=== PATIENT | male | born 1945 | race Caucasian/White ===

== ENCOUNTER 2019-08-11 16:49 | Emergency (ER) | payer MEDICARE, OTHER, SELFPAY ==
--- NOTE | 2019-08-11 16:53 | ED.GENADULT ---
HPI - General Adult General Chief complaint: Upper Respiratory Infection Stated complaint: cough and congestion Time Seen by Provider: 08/11/19 17:08 Source: patient Mode of arrival: ambulatory Limitations: no limitations History of Present Illness HPI narrative: 74-year-old male patient presents to the [facility] with complaints of cold symptoms for the past 3 days. Patient denies any fevers that he is aware of but states he has felt feverish. Patient denies any ear pain but states he has had a little bit of a runny nose denies any sore throat. Patient states he has had a deep cough that he feels like it is going down to his chest. Patient denies any chest pain or shortness of breath at this time. Patient states he is a former smoker and quit about 15 years ago. Denies any lung diseases that he is aware of. Patient states that he did get a flu shot this year. Patient denies taking anything for symptoms since they started. Related Data Home Medications Medication Instructions Recorded Confirmed atorvastatin 20 mg PO DAILY 08/11/19 08/11/19 dutasteride 0.5 mg PO DAILY 08/11/19 08/11/19 isosorbide mononitrate 30 mg PO DAILY 08/11/19 08/11/19 quinapril 40 mg PO DAILY 08/11/19 08/11/19 Allergies Allergy/AdvReac Type Severity Reaction Status Date / Time codeine AdvReac Unknown HEADACHES Verified 08/11/19 17:08 Review of Systems Review of Systems: Narrative: CONSTITUTIONAL: Denies fever, chills, or sweats. EYES: Denies visual changes, redness, or discharge. ENT: Positive rhinorrhea, congestion, denies sore throat, or otalgia. CARDIOVASCULAR: Denies chest pain, palpitations, or edema. RESPIRATORY: Positive cough denies dyspnea. GASTROINTESTINAL: Denies abdominal pain, nausea, vomiting, or diarrhea. GENITOURINARY: Denies dysuria or hematuria. SKIN: Denies rash or itching. MUSCULOSKELETAL: Denies back pain, joint pain, or myalgia. NEUROLOGIC: Denies headache, numbness, or weakness. PSYCHIATRIC: Denies anxiety or depression. [facility] Past Medical History Medical History (Updated 08/11/19 @ 17:14 by SHIV Zhang) Coronary artery disease Enlarged prostate Hypercholesterolemia Hypertension Hypothyroidism Surgical History Surgical History (Updated 08/11/19 @ 17:07 by PARESH Zhang H/O cardiac catheterization 2 stents placed March 2012 History of cholecystectomy History of orthopedic surgery Right shoulder rotator cuff 2008 Comments At the time of my signature I agree with nursing past medical history, surgical, social, and family history. There is no relevant family history pertinent to the presenting complaint. Exam Narrative: Exam Narrative: GENERAL: Well-appearing, well-nourished, and in no acute distress. HEAD: Normocephalic, atraumatic. No tenderness noted to frontal or maxillary sinuses on palpation. EYES: PERRLA and EOMI. ENT: Nares with erythema and edema noted on the right side, no rhinorrhea or epistaxis. Mucous membranes moist. Posterior pharynx with no erythema, tonsillectomy, exudates or lesions present. Bilateral TMs are clear with no erythema or foreign bodies in the canal. NECK: Supple. No lymphadenopathy CHEST: Clear to auscultation. No respiratory distress. Patient able talk in clear complete sentences. No tripoding noted. HEART: Regular rate and rhythm. No murmur heard. Normal peripheral pulses. ABDOMEN: Soft, nontender, nondistended, normal active bowel sounds. EXTREMITIES: Normal range of motion. No edema. SKIN: Warm, dry, no rash. NEURO: No focal deficits. Alert and oriented x3. Course Vital Signs Vital signs: Vital Signs Temperature 36.7 C 08/11/19 16:58 Pulse Rate 79 08/11/19 16:58 Respiratory Rate 14 08/11/19 16:58 Blood Pressure 163/90 H 08/11/19 16:58 Pulse Oximetry 98 08/11/19 16:58 Temperature 36.7 C 08/11/19 16:58 Pulse Rate 79 08/11/19 16:58 Respiratory Rate 14 08/11/19 16:58 Blood Pressure 163/90 H 08/11/19 16:58 Puls
[2019-08-11 16:58] VITALS: BP 163/90; PULSE 79; RESP 14; TEMP 36.7; O2SAT 98
== END 2019-08-11 17:18 | disposition home or self-care (01) ==
PROVIDERS: Emergency Provider Nurse Practitioner Family
DX: J06.9 Acute upper respiratory infection, unspecified (principal); I25.10 Atherosclerotic heart disease of native coronary artery without angina pectoris; Z95.5 Presence of coronary angioplasty implant and graft; N40.0 Benign prostatic hyperplasia without lower urinary tract symptoms; E78.00 Pure hypercholesterolemia, unspecified; I10 Essential (primary) hypertension; E03.9 Hypothyroidism, unspecified
CPT/HCPCS: 99213; G0463

== ENCOUNTER 2022-06-19 11:25 | Emergency (ER) | payer OTHER, SELFPAY ==
--- NOTE | ~2022-06-19 | XR_ITS ---
XR foot RT min 3V 06/19/2022 12:27 Indication: Right great toe pain Procedure: 4 views right foot Comparison: No prior studies for comparison. Findings: There is mild osteoarthritis of the first MTP and IP joints. No erosive changes. No acute f racture. There are small degenerative calcaneal enthesophytes. Lisfranc joint intact. 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 Reviewed, dictated and finalized at location A. 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
[2022-06-19 12:09] VITALS: BP 157/97; PULSE 85; RESP 18; TEMP 35.9; O2SAT 98
--- NOTE | 2022-06-19 12:22 | PC.NURSE ---
Xray at bedside
--- NOTE | 2022-06-19 13:44 | ED.LOWEXIN ---
HPI - Extremity Injury (Lower) General Chief Complaint: Extremity Injury, Lower Stated Complaint: right foot injury at work Time Seen by Provider: 06/19/22 13:43 Source: patient Mode of arrival: ambulatory Limitations: no limitations History of Present Illness HPI Narrative: Patient is 77 years old white male presents with right foot pain after a log rolled over it. Patient has safety shoes on at that time. He denies other injuries. Prior to arrival. complaint: foot injury Related Data Home Medications Medication Instructions Recorded Confirmed atorvastatin 20 mg tablet 20 mg PO DAILY 08/11/19 08/11/19 dutasteride 0.5 mg capsule 0.5 mg PO DAILY 08/11/19 08/11/19 isosorbide mononitrate 30 mg 30 mg PO DAILY 08/11/19 08/11/19 tablet,extended release 24 hr quinapril 40 mg tablet 40 mg PO DAILY 08/11/19 08/11/19 Allergies Allergy/AdvReac Type Severity Reaction Status Date / Time codeine AdvReac Unknown HEADACHES Verified 06/19/22 12:27 Review of Systems Review of Systems: All systems reviewed & are unremarkable except as noted in HPI and below PMFSH Past Medical History Medical History Coronary artery disease Enlarged prostate Hypercholesterolemia Hypertension Hypothyroidism Surgical History Surgical History H/O cardiac catheterization 2 stents placed March 2012 History of cholecystectomy History of orthopedic surgery Right shoulder rotator cuff 2007 Exam Narrative: General appearance: Well-developed, well-nourished Skin: Normal color Chest and respiratory: Airway patent, no respiratory distress, no accessory muscle use Heart: Regular rate/rhythm Vascular: Normal peripheral pulses, normal capillary refill. Musculoskeletal: Normal range of motion,, slight diffuse tenderness at the dorsal area of the right foot mainly the big toe. No obvious bruises or deformity Neurologic: Alert and oriented ?3, [employer] is normal as tested, no gross motor deficit Course Vital Signs Vital signs: Vital Signs Temperature 35.9 C L 06/19/22 12:09 Pulse Rate 85 06/19/22 12:09 Respiratory Rate 18 06/19/22 12:09 Blood Pressure 157/97 H 06/19/22 12:09 Pulse Oximetry 98 06/19/22 12:09 Oxygen Delivery Room Air 06/19/22 12:09 Temperature 35.9 C L 06/19/22 12:09 Pulse Rate 85 06/19/22 12:09 Respiratory Rate 18 06/19/22 12:09 Blood Pressure 157/97 H 06/19/22 12:09 Pulse Oximetry 98 06/19/22 12:09 Oxygen Delivery Room Air 06/19/22 12:09 MDM - Extremity Injury (Lower) Differential Diagnosis Differential diagnosis: Likely fracture of toe and other (Foot fracture, contusion) Imaging Data Radiologist's impression: Impressions Foot X-Ray 06/19/22 12:32 Impression: 1: 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 Critical Care Time Critical Care Time Critical Care Time: No Discharge Plan Discharge Clinical Impression: Contusion of foot, right Patient Disposition: Home, Self-Care Condition: Stable Instructions: Antibiotic Form, Foot Contusion (ED) Additional Instructions: Keep right foot elevated, Tylenol, ibuprofen as needed, ice pack 20 minutes/h for the next 24 hours Prescriptions: No Action atorvastatin 20 mg Tablet 20 mg PO DAILY isosorbide mononitrate 30 mg Tablet Extended Release 24 Hr 30 mg PO DAILY quinapril 40 mg Tablet 40 mg PO DAILY dutasteride 0.5 mg Capsule 0.5 mg PO DAILY cetirizine [Zyrtec] 10 mg tablet 10 mg PO DAILY Qty: 30 0RF benzonatate 200 mg capsule 200 mg PO TID PRN (Reas
[2022-06-19 14:09] VITALS: BP 165/96; PULSE 67; RESP 16; TEMP 36.8; O2SAT 98
== END 2022-06-19 14:09 | disposition home or self-care (01) ==
PROVIDERS: Emergency Provider Emergency Medicine
DX: S90.31XA Contusion of right foot, initial encounter (principal); I25.10 Atherosclerotic heart disease of native coronary artery without angina pectoris; I10 Essential (primary) hypertension; E78.00 Pure hypercholesterolemia, unspecified; E03.9 Hypothyroidism, unspecified; N40.0 Benign prostatic hyperplasia without lower urinary tract symptoms; Z95.5 Presence of coronary angioplasty implant and graft; M19.071 Primary osteoarthritis, right ankle and foot; W22.8XXA Striking against or struck by other objects, initial encounter
CPT/HCPCS: 73630; 99283

== ENCOUNTER 2022-07-09 08:26 | Emergency (ER) | payer OTHER, SELFPAY ==
--- NOTE | 2022-07-09 08:30 | ED.LOWEXIN ---
HPI - Extremity Injury (Lower) General Chief Complaint: Unspecified Stated Complaint: Follow up acc on right foot Time Seen by Provider: 07/09/22 09:11 Source: patient and RN notes reviewed Mode of arrival: ambulatory Limitations: no limitations History of Present Illness HPI Narrative: 77-year-old male presents with concern for follow-up for foot injury for Ku. Reports he had a heavy object fall on his right foot at work on June 19, he was seen in the emergency room. Reports his symptoms have resolved he no longer has any pain in his foot or toe. Reports he has required by [employer] comp to have a follow-up and he was unable to follow-up with the referral that was given to him. MD complaint: foot injury Related Data Home Medications Medication Instructions Recorded Confirmed atorvastatin 20 mg tablet 20 mg PO DAILY 08/11/19 07/09/22 dutasteride 0.5 mg capsule 0.5 mg PO DAILY 08/11/19 07/09/22 isosorbide mononitrate 30 mg 30 mg PO DAILY 08/11/19 07/09/22 tablet,extended release 24 hr quinapril 40 mg tablet 40 mg PO DAILY 08/11/19 07/09/22 Allergies Allergy/AdvReac Type Severity Reaction Status Date / Time codeine AdvReac Unknown HEADACHES Verified 07/09/22 09:00 Review of Systems Review of Systems: CONSTITUTIONAL: Denies malaise, chills, sweats, or fever. SKIN: Denies rash or itching, open skin, laceration, abrasion, redness, warmth, swelling. MUSCULOSKELETAL: Denies foot pain NEUROLOGIC: Denies numbness, weakness All systems reviewed & are unremarkable except as noted in HPI and below PMFSH Past Medical History Medical History Coronary artery disease Enlarged prostate Hypercholesterolemia Hypertension Hypothyroidism Surgical History Surgical History H/O cardiac catheterization 2 stents placed March 2012 History of cholecystectomy History of orthopedic surgery Right shoulder rotator cuff 2007 Comments At time of signature, agree with nursing past medical, surgical, social and family history. There is no relevant family history pertinent to the presenting complaint Exam Narrative: GENERAL: Well-appearing, well-nourished, and in no acute distress. HEAD: Normocephalic, atraumatic. EYES: PERRLA, conjunctivae clear NECK: Supple. CHEST: Speaks in full sentences. No respiratory distress. HEART: Regular rate and rhythm. Normal and equal peripheral pulses. EXTREMITIES: Right foot, digits have normal strength and sensation, normal range of motion. No edema or erythema. 5/5 strength with ankle flexion and extension. Normal sensation with sensitivity to light touch and pain. No point tenderness. No open wounds, no skin tenting, no devitalized tissue or atrophy, no trophic changes, no obvious deformity, alignment normal, nearby joints and structures intact. Distal pulses palpable and equal bilaterally, skin warm, dry, pink. Capillary refill less than 3 seconds. SKIN: Warm, dry, no rash. Resolving subungual hematoma noted to the 1st digit of the right foot NEURO: Alert and oriented x3. PSYCH: Normal mood and affect Course Course Emergency Course: Portions of this record may have been created with voice recognition software Level of Care: Express Care Visit Vital Signs Vital signs: Vital Signs Temperature 98.2 F 07/09/22 08:38 Pulse Rate 81 07/09/22 08:38 Respiratory Rate 20 07/09/22 08:38 Blood Pressure 115/70 07/09/22 08:38 Pulse Oximetry 98 07/09/22 08:38 Oxygen Delivery Room Air 07/09/22 08:38 Temperature 98.2 F 07/09/22 08:38 Pulse Rate 81 07/09/22 08:38 Respiratory Rate 20 07/09/22 08:38 Blood Pressure 115/70 07/09/22 08:38 Pulse Oximetry 98 07/09/22 08:38 Oxygen Delivery Room Air 07/09/22 08:38 Reviewed. MDM - Extremity Injury (Lower) MDM Narrative Medical decision making narrative: Exam findings show no acute concerns or
[2022-07-09 08:38] VITALS: BP 115/70; PULSE 81; RESP 20; TEMP 36.8; O2SAT 98
== END 2022-07-09 09:26 | disposition home or self-care (01) ==
PROVIDERS: Emergency Provider Nurse Practitioner
DX: Z04.2 Encounter for examination and observation following work accident (principal); I25.10 Atherosclerotic heart disease of native coronary artery without angina pectoris; N40.0 Benign prostatic hyperplasia without lower urinary tract symptoms; E78.00 Pure hypercholesterolemia, unspecified; I10 Essential (primary) hypertension; E03.9 Hypothyroidism, unspecified; Z95.5 Presence of coronary angioplasty implant and graft
CPT/HCPCS: 99212; G0463

== ENCOUNTER 2023-05-16 14:33 | Emergency (ER) | payer OTHER, SELFPAY ==
--- NOTE | ~2023-05-16 | XR_ITS ---
XR shoulder LT min 2V, XR humerus LT 05/16/2023 15:05 Indication: Left shoulder and arm pain Procedure: 4 views left shoulder and 2 views left humerus Comparison: No prior studies for comparison. Findings: There is an ossific density at the lateral humeral epicondyles which is corticated, likely related to old trauma or degenerative change. 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 No acute fracture. No significant soft tissue abnormality. Impression: 1: No acute fracture. Reviewed, dictated and finalized at location A. Impression: 1: No acute fracture. Impression: 1: No acute fracture.
[2023-05-16 14:37] VITALS: BP 160/100; PULSE 93; RESP 18; TEMP 36.8; O2SAT 97
[2023-05-16 15:16] VITALS: BP 162/93; PULSE 81; RESP 18; O2SAT 97
--- NOTE | 2023-05-16 16:40 | ED.UPPEXIN ---
HPI - Extremity Injury (Upper) General Chief Complaint: Extremity Injury, Upper Stated Complaint: left arm injury after fall Time Seen by Provider: 05/16/23 15:14 Source: patient Mode of arrival: ambulatory Limitations: no limitations History of Present Illness HPI narrative: Patient is a 78-year-old male who presents to the ED with report of left shoulder pain. Patient reports he was attempting to pull a vine off of a tree at work today when he fell backwards and landed on his left side. He did not hit his head or lose consciousness. He c/o pain to his L shoulder/upper arm. Denies any numbness or tingling. Denies other injuries. He has not taken anything for pain. Patient is on Eliquis due to history of A-fib. Related Data Home Medications Medication Instructions Recorded Confirmed atorvastatin 20 mg tablet 20 mg PO DAILY 08/11/19 07/09/22 dutasteride 0.5 mg capsule 0.5 mg PO DAILY 08/11/19 07/09/22 isosorbide mononitrate 30 mg 30 mg PO DAILY 08/11/19 07/09/22 tablet,extended release 24 hr quinapril 40 mg tablet 40 mg PO DAILY 08/11/19 07/09/22 Allergies Allergy/AdvReac Type Severity Reaction Status Date / Time codeine AdvReac Unknown HEADACHES Verified 05/16/23 14:34 Review of Systems Review of Systems: CONSTITUTIONAL: Denies fever, chills, or sweats. MUSCULOSKELETAL: See HPI. NEUROLOGIC: See HPI. All systems reviewed & are unremarkable except as noted in HPI and below PMFSH Past Medical History Medical History Coronary artery disease Enlarged prostate Hypercholesterolemia Hypertension Hypothyroidism Surgical History Surgical History H/O cardiac catheterization 2 stents placed March 2012 History of cholecystectomy History of orthopedic surgery Right shoulder rotator cuff 2008 Exam Narrative: GENERAL: Well appearing, well-nourished, non-toxic, in no acute distress. HEAD: Normocephalic, atraumatic. NECK: Supple. No adenopathy, no masses. RESPIRATORY: Airway patent, respirations nonlabored. Clear to auscultation bilaterally, no rales, rhonchi, wheezing. CARDIOVASCULAR: Regular rate and rhythm without murmurs, rubs, or gallops. Radial pulses 2+ and equal bilaterally. MUSCULOSKELETAL: Moves all extremities. Limited flexion and abduction range of motion of left shoulder due to pain. Tenderness palpation over left posterior lateral shoulder/proximal humerus. No palpable deformities. Sensation intact. Equal roofer metal strength bilaterally. SKIN: Warm, dry, normal color. No rashes. NEURO: A&O X3. Speech clear. Cranial nerves II-XII grossly intact. Steady gait. No ataxic movements. PSYCHIATRIC: Appropriate mood and affect. Normal interaction. Course Vital Signs Vital signs: Vital Signs Temperature 98.2 F 05/16/23 14:37 Pulse Rate 93 05/16/23 14:37 Respiratory Rate 18 05/16/23 14:37 Blood Pressure 160/100 H 05/16/23 14:37 Pulse Oximetry 97 05/16/23 14:37 Oxygen Delivery Room Air 05/16/23 14:37 Temperature 98 F 05/16/23 17:00 Pulse Rate 80 05/16/23 17:00 Respiratory Rate 18 05/16/23 17:00 Blood Pressure 160/90 H 05/16/23 17:00 Pulse Oximetry 97 05/16/23 17:00 Oxygen Delivery Room Air 05/16/23 14:37 MDM - Extremity Injury (Upper) MDM Narrative Medical decision making narrative: Patient presented to ED with status post ground-level fall, pain to left shoulder. Patient's injury is consistent with musculoskeletal etiology. No signs of neurologic or vascular compromise on physical examination. Compartments are soft without signs of compartment syndrome. XR of left shoulder and humerus without evidence for fracture. Discussed lab and imaging findings with patient. Discussed possibility of shoulder strain versus rotator cuff pathology. Patient is felt to be stable for discharge home and further outpatient management and treatment.
[2023-05-16] MEDS: ACETAMINOPHEN 500 MG TABLET 1000 MG PO (16:54)
[2023-05-16 17:00] VITALS: BP 160/90; PULSE 80; RESP 18; TEMP 36.6; O2SAT 97
== END 2023-05-16 17:00 | disposition home or self-care (01) ==
PROVIDERS: Emergency Provider Physician Assistant
DX: S46.912A Strain of unspecified muscle, fascia and tendon at shoulder and upper arm level, left arm, initial encounter (principal); I48.91 Unspecified atrial fibrillation; I10 Essential (primary) hypertension; I25.10 Atherosclerotic heart disease of native coronary artery without angina pectoris; E03.9 Hypothyroidism, unspecified; E78.00 Pure hypercholesterolemia, unspecified; N40.0 Benign prostatic hyperplasia without lower urinary tract symptoms; Z95.5 Presence of coronary angioplasty implant and graft; Z90.49 Acquired absence of other specified parts of digestive tract; Z79.01 Long term (current) use of anticoagulants; W18.39XA Other fall on same level, initial encounter
CPT/HCPCS: 73030; 73060; 99283; A4565; A9270

== ENCOUNTER → 2023-05-29 12:38 | Outpatient (CLI) | payer OTHER, SELFPAY ==
--- NOTE | ~2023-05-29 | MR_ITS ---
MRI of the left shoulder Technique: Axial proton-density fat-sat images, coronal proton density fat-sat and T2 fat-sat images, and sagittal T1-weighted and T2 fat-sat images were acquired. Clinical History: Pain Findings: There is advanced AC joint degenerative change. Coracoclavicular, coracoacromial, and corac ohumeral ligaments appear intact. There is complete, full-thickness tear involving the entirety of the supraspinatus tendon, and probab ly the entire infraspinatus tendon as well. There is severe tendinosis of the retracted infraspinatus tendon and supraspinatus tendon margins. Fluid-filled gap measures approximately 4.7 x 4.4 cm in ext ent. Subscapularis tendon demonstrates severe tendinosis. Tendon of the long head of the biceps is in tact, with intra-articular tendinosis. There is extensive degenerative tearing of the superior labrum, extending to the anterosuperior, ante rior, anteroinferior portions. There is diffuse high-grade chondromalacia of the glenohumeral joint, with joint space narrowing and small osteophyte formation. Inferior glenohumeral joint is intact. Small glenohumeral joint effusion is present, with fluid passing through the rotator cuff defect into the subacromial/subdeltoid bursa. There is additional septated cystic fluid collection immediately superior to and abutting the supras pinatus muscle belly, measuring 2.9 cm in maximum diameter (sagittal image 13), which could reflect a dditional bursitis versus ganglion cyst. No muscle atrophy evident. There is mild edematous change of the superior infraspinatus muscle belly. 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 Extensive degenerative labral tearing extending from superior labrum to the anterosuperior, anterior, and anteroinferior portions. Advanced glenohumeral joint and a chronic clavicular joint degenerative change. 2.9 cm ganglion cyst versus bursitis just along the superior margin of the supraspinatus muscle belly , possibly related to fluid extending from the glenohumeral joint through the rotator cuff defect. Reviewed, dictated and finalized at location M. ER CRAFTSMAN Impression: Complete, full-thickness tears of the supraspinatus and infraspinatus tendons, as detailed above, with underlying severe tendinosis. Extensive degenerative labral tearing extending from superior labrum to the ant erosuperior, anterior, and anteroinferior portions. Advanced glenohumeral joint and a chronic clavicular joint degenerative change. 2.9 cm ganglion cyst versus bursitis just along the superior margin of the supr aspinatus muscle belly, possibly related to fluid extending from the glenohumer al joint through the rotator cuff defect.
== END ==
PROVIDERS: Visit Provider Orthopaedic Surgery
DX: M75.122 Complete rotator cuff tear or rupture of left shoulder, not specified as traumatic (principal); M19.012 Primary osteoarthritis, left shoulder
CPT/HCPCS: 73221

== ENCOUNTER 2023-06-11 11:35 | Emergency (ER) | payer OTHER, SELFPAY ==
--- NOTE | 2023-06-11 11:47 | ED.SKABFB ---
HPI - Skin/Abscess/Foreign Bdy General Chief complaint: Skin/Abscess/Foreign Body Stated complaint: Skin Sore/Back Time Seen by Provider: 06/11/23 11:47 Source: patient Mode of arrival: ambulatory Limitations: no limitations History of Present Illness HPI narrative: Otoniel is a 78-year-old male patient presenting to the clinic today with complaints of a skin sore to his back. He reports he developed a red painful area to the right mid back over the last few days. Reports that he has had a cyst to the mid back for a very long time but never this area on the right mid back. He denies any fever or chills. Area is tender to palpation Related Data Home Medications Medication Instructions Recorded Confirmed atorvastatin 20 mg tablet 20 mg PO DAILY 08/11/19 06/11/23 dutasteride 0.5 mg capsule 0.5 mg PO DAILY 08/11/19 06/11/23 isosorbide mononitrate 30 mg 30 mg PO DAILY 08/11/19 06/11/23 tablet,extended release 24 hr quinapril 40 mg tablet 40 mg PO DAILY 08/11/19 06/11/23 lisinopril 40 mg tablet 40 mg PO DAILY 06/11/23 06/11/23 tamsulosin 0.4 mg capsule 0.4 mg PO DAILY 06/11/23 06/11/23 Allergies Allergy/AdvReac Type Severity Reaction Status Date / Time codeine AdvReac Unknown HEADACHES Verified 06/11/23 11:59 Review of Systems Review of Systems: Pertinent positives per HPI. Patient denies any fever, chills, rash, headache, visual changes, dizziness, cough, runny nose, sore throat, shortness of breath, chest pain, palpitations, nausea, vomiting, diarrhea, constipation, abdominal pain, or any urinary issues. [facility] Past Medical History Medical History Coronary artery disease Enlarged prostate History of bruising easily History of stress test Hypercholesterolemia Hypertension Hypothyroidism Surgical History Surgical History H/O cardiac catheterization 2 stents placed March 2012 History of cholecystectomy History of coronary artery stent placement History of orthopedic surgery Right shoulder rotator cuff 2008 Family History Family History Father Heart disease Mother Heart disease Social History Social History Smoking status: Former smoker Tobacco type: cigarettes Alcohol intake: never Substance use: never Substance use type: does not use Lack of Transportation: No Lack of Food: Never True Current Housing: I Have Housing Concerned About Future Housing: No Difficulty Paying Gas/Electric Bills: No Difficulty Paying for Meds: No Currently Unemployed: No Education: Trade/Vocational Certificate Difficulty w/ Childcare or Family Care: No Comments At the time of my signature, I reviewed and agree with the nursing past medical, surgical, social, and family history. There is no relevant family history pertinent to the patient complaint. Exam Narrative: General: Well-developed, well nourished, in no apparent distress Head: Normocephalic, atraumatic. Cardio: Regular rate and rhythm, s1 and s2 normal, no murmur appreciated. Resp: Clear to auscultation bilaterally, no rhonchi, rales, wheezing or rubs. Integumentary: Pope, warm, and dry, possible infected cyst with redness and induration measuring 3x8cm, tenderness to palpation with erythema without fluctuance. Course Course Emergency Course: Portions of this record may have been created with voice recognition software. Level of Care: Express Care Visit Vital Signs Vital signs: Vital signs reviewed MDM - Skin/Abscess/Foreign Bdy MDM Narrative Medical decision making narrative: At the time of visit patient is resting comfortably on exam table. I suspect patient may have an infected sebaceous cyst to the right mid back. Area is not fluctuant at this time. Will place patient on cl
[2023-06-11 11:49] VITALS: BP 128/95; PULSE 88; RESP 18; TEMP 36.7; O2SAT 98
== END 2023-06-11 12:05 | disposition home or self-care (01) ==
PROVIDERS: Emergency Provider Nurse Practitioner Family
DX: L72.3 Sebaceous cyst (principal); Z87.891 Personal history of nicotine dependence; I25.10 Atherosclerotic heart disease of native coronary artery without angina pectoris; N40.0 Benign prostatic hyperplasia without lower urinary tract symptoms; E78.00 Pure hypercholesterolemia, unspecified; I10 Essential (primary) hypertension; E03.9 Hypothyroidism, unspecified; Z95.5 Presence of coronary angioplasty implant and graft
CPT/HCPCS: 99213; G0463

== ENCOUNTER 2023-11-10 14:20 | Emergency (ER) | payer OTHER, SELFPAY ==
[2023-11-10 14:43] VITALS: BP 145/89; PULSE 85; RESP 18; TEMP 37.4; O2SAT 98
--- NOTE | 2023-11-10 14:43 | ED.URI ---
HPI - URI/Sore Throat General Chief Complaint: Upper Respiratory Infection Stated Complaint: Cough/Chest Congestion Time Seen by Provider: 11/10/23 14:45 Source: patient, RN notes reviewed and old records reviewed Mode of arrival: ambulatory Limitations: no limitations History of Present Illness HPI Narrative: 78 year old male who presents to [facility] with complaints of 4 days of some cough and congestion with increased symptoms since yesterday evening. Patient reports that since yesterday he has had increased cough has been running low grade fevers, has a headache and feels achy.Patient has not taken any OTC medications for his symptoms. Patient reports that he has been COVID and had flu shot this season. MD elicited complaint: cough and other (congestion, headache achy and low grade fever) Onset (ago): day(s) (4 days cough, increased symptoms since yesterday) Severity: moderate Able to tolerate fluids by mouth: Yes Treatments prior to arrival: none Related Data Home Medications Medication Instructions Recorded Confirmed atorvastatin 20 mg tablet 20 mg PO DAILY 08/11/19 11/10/23 dutasteride 0.5 mg capsule 0.5 mg PO DAILY 08/11/19 11/10/23 lisinopril 40 mg tablet 40 mg PO DAILY 06/11/23 11/10/23 tamsulosin 0.4 mg capsule 0.4 mg PO DAILY 06/11/23 11/10/23 apixaban 2.5 mg tablet (Eliquis) 2.5 mg PO BID 08/08/23 11/10/23 Allergies Allergy/AdvReac Type Severity Reaction Status Date / Time codeine AdvReac Unknown HEADACHES Verified 11/10/23 14:41 Review of Systems Review of Systems: CONSTITUTIONAL: malaise, chills, sweats, or fever. EYES: Denies visual changes, redness, or discharge. ENT: Reports rhinorrhea, congestion,no sinus pain,no otalgia and no sore throat. CARDIOVASCULAR: Denies chest pain, palpitations, or edema. RESPIRATORY: Reports cough.? Denies dyspnea. GASTROINTESTINAL: Denies abdominal pain, nausea, vomiting, diarrhea SKIN: Denies rash or itching. MUSCULOSKELETAL: Reports myalgia. NEUROLOGIC: Reports headache. All systems reviewed & are unremarkable except as noted in HPI and below PMFSH Past Medical History Medical History Coronary artery disease Enlarged prostate History of bruising easily History of stress test Hypercholesterolemia Hypertension Hypothyroidism Surgical History Surgical History H/O cardiac catheterization 2 stents placed March 2012 History of cholecystectomy History of coronary artery stent placement History of orthopedic surgery Right shoulder rotator cuff 2008 Family History Family History Father Heart disease Mother Heart disease Social History Social History Smoking status: Former smoker Tobacco type: cigarettes Alcohol intake: never Substance use: never Substance use type: does not use Do You Feel Safe in your Home?: Yes Lack of Transportation: No Lack of Food: Never True Current Housing: I Have Housing Concerned About Future Housing: No Difficulty Paying Gas/Electric Bills: No Difficulty Paying for Meds: No Currently Unemployed: No Education: Trade/Vocational Certificate Difficulty w/ Childcare or Family Care: No Comments At time of signature, agree with nursing past medical, surgical, social and family history. There is no relevant family history pertinent to the presenting complaint Exam Narrative: GENERAL: Well-appearing, well-nourished, and in no acute distress. HEAD: Normocephalic EYES: PERRLA, conjunctivae clear ENT: Nares clear, turbinates edematous and erythematous, clear discharge, sinus pressure and headache.. Mucous membranes moist. TM pearly mulligan with dull light reflex bilaterally; no tragal tenderness. Oropharynx erythematous without lesions. Tonsils not enlarged a
== END 2023-11-10 15:06 | disposition home or self-care (01) ==
PROVIDERS: Emergency Provider Registered Nurse
DX: U07.1 COVID-19 (principal); Z87.891 Personal history of nicotine dependence; I25.10 Atherosclerotic heart disease of native coronary artery without angina pectoris; N40.0 Benign prostatic hyperplasia without lower urinary tract symptoms; E78.00 Pure hypercholesterolemia, unspecified; I10 Essential (primary) hypertension; E03.9 Hypothyroidism, unspecified; Z95.5 Presence of coronary angioplasty implant and graft
CPT/HCPCS: 87426; 87804; 99213; G0463